=== PATIENT | male | born 1940 | race Caucasian/White ===

== ENCOUNTER → 2017-08-22 10:33 | Outpatient (CLI) | payer OTHER ==
[~2017-08-22 10:33] MED LIST: ASA81 MG PO; FLOMAX; PLAVIX75 MG PO; TAMS0.4C; TOPROL XL25 M1 PO; TOPROL XL25 MG PO; ZOCOR20 MG; ZOCOR40 MG PO; ZOCOR5 MG
== END | disposition home or self-care (01) ==
LOC: LAB 10:33
DX: D68.61 Antiphospholipid syndrome (principal); E72.11 Homocystinuria; D51.3 Other dietary vitamin B12 deficiency anemia; I82.B11 Acute embolism and thrombosis of right subclavian vein; E78.2 Mixed hyperlipidemia; N40.1 Benign prostatic hyperplasia with lower urinary tract symptoms; D50.8 Other iron deficiency anemias; R97.0 Elevated carcinoembryonic antigen [CEA]; R97.8 Other abnormal tumor markers; D51.8 Other vitamin B12 deficiency anemias

== ENCOUNTER 2017-08-25 12:47 | Outpatient (CLI) | payer OTHER | END 2017-08-25 12:58 | disposition home or self-care (01) | LOC: NUCLEAR 12:47 | DX: I87.2 Venous insufficiency (chronic) (peripheral) (principal); D68.61 Antiphospholipid syndrome; E72.11 Homocystinuria; D51.3 Other dietary vitamin B12 deficiency anemia; I82.811 Embolism and thrombosis of superficial veins of right lower extremity; E78.2 Mixed hyperlipidemia; N40.1 Benign prostatic hyperplasia with lower urinary tract symptoms ==

== ENCOUNTER 2017-10-31 11:07 | Outpatient (CLI) | payer OTHER | END 2017-10-31 11:17 | disposition home or self-care (01) | LOC: LAB 11:07 | DX: E11.65 Type 2 diabetes mellitus with hyperglycemia (principal); E72.11 Homocystinuria; E03.8 Other specified hypothyroidism; E78.2 Mixed hyperlipidemia; D64.89 Other specified anemias; D68.8 Other specified coagulation defects ==

== ENCOUNTER 2017-12-12 09:45 | Outpatient (CLI) | payer OTHER | END 2017-12-12 10:30 | disposition home or self-care (01) | LOC: NUCLEAR 09:45 | DX: I82.401 Acute embolism and thrombosis of unspecified deep veins of right lower extremity (principal) ==

== ENCOUNTER 2018-09-11 07:20 | Outpatient (CLI) | payer OTHER | END 2018-09-11 12:32 | disposition home or self-care (01) | LOC: NUCLEAR 07:20 | DX: I20.9 Angina pectoris, unspecified (principal) | CPT/HCPCS: 78452; 93017; A9500; J0153 ==

== ENCOUNTER 2018-09-27 17:29 | Emergency (ER) | payer OTHER ==
[~2018-09-27] VITALS: Ht 165.1 cm; Wt 82.6 kg
== END 2018-09-27 21:13 | disposition home or self-care (01) ==
LOC: ER 17:29
DX: D32.0 Benign neoplasm of cerebral meninges (principal); R42 Dizziness and giddiness

== ENCOUNTER 2019-02-20 10:32 | Inpatient (IN) | payer OTHER ==
[~2019-02-20] VITALS: Ht 165.1 cm; Wt 82.6 kg
--- NOTE | 2019-02-20 10:41 | NUR ---
SE RECIBE AL PACIENTE ORIENTADO Y ALERTA EN PRISCILLA RASHAD ESFERAS. PACIENTE VIENE POR TOS SECA DESDE HACE KARYN SEMANA.
== END 2019-02-25 15:44 | disposition home or self-care (01) | DRG 194 ==
LOC: ER 10:32 → MEDJ 18:22
PROVIDERS: ADMIT Specialist
PROC: BW24ZZZ Computerized Tomography (CT Scan) of Chest and Abdomen (ICD-10-PCS; principal; 2019-02-20)
PROC: B246ZZZ Ultrasonography of Right and Left Heart (ICD-10-PCS; 2019-02-20)
PROC: BW21ZZZ Computerized Tomography (CT Scan) of Abdomen and Pelvis (ICD-10-PCS; 2019-02-21)
DX: J18.9 Pneumonia, unspecified organism (principal); J90 Pleural effusion, not elsewhere classified; J44.1 Chronic obstructive pulmonary disease with (acute) exacerbation; J98.11 Atelectasis; D68.59 Other primary thrombophilia; D68.318 Other hemorrhagic disorder due to intrinsic circulating anticoagulants, antibodies, or inhibitors; J45.901 Unspecified asthma with (acute) exacerbation; I71.2 Thoracic aortic aneurysm, without rupture; I71.4 Abdominal aortic aneurysm, without rupture; I25.10 Atherosclerotic heart disease of native coronary artery without angina pectoris; I25.2 Old myocardial infarction; I10 Essential (primary) hypertension; E78.49 Other hyperlipidemia; R35.1 Nocturia; N40.0 Benign prostatic hyperplasia without lower urinary tract symptoms; Z95.5 Presence of coronary angioplasty implant and graft; Z72.0 Tobacco use

== ENCOUNTER 2019-03-25 11:40 | Outpatient (CLI) | payer OTHER ==
[2019-03-26] MEDS ORDERED: XARELTO20 MG (09:59)
== END 2019-03-25 11:50 | disposition home or self-care (01) ==
LOC: LAB 11:40
DX: I11.9 Hypertensive heart disease without heart failure (principal); D64.89 Other specified anemias; R07.89 Other chest pain

== ENCOUNTER 2019-03-26 09:37 | Inpatient (IN) | payer OTHER ==
[~2019-03-26] VITALS: Ht 182.9 cm; Wt 5.0 kg
[2019-03-26] MEDS ORDERED: XARELTO20 MG (09:59)
== END 2019-04-02 15:58 | disposition home or self-care (01) | DRG 187 ==
LOC: ER 09:37 → MEDJ 15:43
PROVIDERS: ADMIT Specialist
PROC: 3E0F7GC Introduction of Other Therapeutic Substance into Respiratory Tract, Via Natural or Artificial Opening (ICD-10-PCS; 2019-03-26)
PROC: 4A033R1 Measurement of Arterial Saturation, Peripheral, Percutaneous Approach (ICD-10-PCS; 2019-03-26)
PROC: 0W9930Z Drainage of Right Pleural Cavity with Drainage Device, Percutaneous Approach (ICD-10-PCS; principal; 2019-03-29)
DX: J90 Pleural effusion, not elsewhere classified (principal); I25.810 Atherosclerosis of coronary artery bypass graft(s) without angina pectoris; J98.11 Atelectasis; D68.318 Other hemorrhagic disorder due to intrinsic circulating anticoagulants, antibodies, or inhibitors; I82.601 Acute embolism and thrombosis of unspecified veins of right upper extremity; J44.1 Chronic obstructive pulmonary disease with (acute) exacerbation; J45.51 Severe persistent asthma with (acute) exacerbation; I11.9 Hypertensive heart disease without heart failure; E54 Ascorbic acid deficiency; I71.4 Abdominal aortic aneurysm, without rupture; R09.02 Hypoxemia; G20 Parkinson's disease; J20.9 Acute bronchitis, unspecified; I25.2 Old myocardial infarction; Z79.01 Long term (current) use of anticoagulants; Z95.5 Presence of coronary angioplasty implant and graft

== ENCOUNTER 2019-04-15 13:07 | Outpatient (CLI) | payer OTHER ==
[~2019-04-15 13:07] MED LIST changes: +XARELTO20 MG
== END 2019-04-15 13:16 | disposition home or self-care (01) ==
LOC: LAB 13:07
DX: D64.89 Other specified anemias (principal); D68.8 Other specified coagulation defects; E11.65 Type 2 diabetes mellitus with hyperglycemia

== ENCOUNTER 2019-04-15 13:29 | Outpatient (CLI) | payer OTHER | END 2019-04-15 13:32 | disposition home or self-care (01) | LOC: RAD 13:29 | DX: R07.89 Other chest pain (principal) ==

== ENCOUNTER 2019-05-31 07:13 | Outpatient (CLI) | payer OTHER | END 2019-05-31 07:20 | disposition home or self-care (01) | LOC: NUCLEAR 07:13 | DX: I25.10 Atherosclerotic heart disease of native coronary artery without angina pectoris (principal) | CPT/HCPCS: 78452; 93017; A9500; J0153 ==

== ENCOUNTER 2020-08-18 09:48 | Inpatient (IN) | payer OTHER ==
[~2020-08-18] VITALS: Ht 167.6 cm; Wt 82.6 kg
[2020-08-22] MEDS ORDERED: XOPENEX0.63 MG/3 IH (15:17)
[2020-08-22] MEDS ORDERED: TAMS0.4C PO (15:17)
[2020-08-22] MEDS ORDERED: XARELTO20 MG PO (15:17)
[2020-08-22] MEDS ORDERED: ENALAPRIL MALEAT5 MG PO (15:17)
[2020-08-22] MEDS ORDERED: ISOSORBIDE DINIT5 MG PO (15:17)
[2020-08-22] MEDS ORDERED: BUDESONIDE0.5 MG/2 M IH (15:17)
[2020-08-22] MEDS ORDERED: ZOCOR20 MG PO (15:17)
== END 2020-08-22 18:42 | disposition home or self-care (01) | DRG 292 ==
LOC: ER 09:48 → MEDI 14:19 → MEDJ 14:19 → MEDI 15:54
PROVIDERS: ADMIT Specialist; ATTEND Specialist
PROC: 4A033R1 Measurement of Arterial Saturation, Peripheral, Percutaneous Approach (ICD-10-PCS; principal; 2020-08-18)
PROC: CB2YYZZ Tomographic (Tomo) Nuclear Medicine Imaging of Respiratory System using Other Radionuclide (ICD-10-PCS; 2020-08-18)
PROC: B24BZZZ Ultrasonography of Heart with Aorta (ICD-10-PCS; 2020-08-21)
DX: I11.0 Hypertensive heart disease with heart failure (principal); J98.11 Atelectasis; J44.1 Chronic obstructive pulmonary disease with (acute) exacerbation; I48.20 Chronic atrial fibrillation, unspecified; I16.0 Hypertensive urgency; I50.23 Acute on chronic systolic (congestive) heart failure; I25.10 Atherosclerotic heart disease of native coronary artery without angina pectoris; Z86.16 Personal history of COVID-19; Z20.822 Contact with and (suspected) exposure to COVID-19; Z95.5 Presence of coronary angioplasty implant and graft; Z79.01 Long term (current) use of anticoagulants

== ENCOUNTER 2021-02-12 10:41 | Outpatient (CLI) | payer OTHER ==
[~2021-02-12 10:41] MED LIST changes: +BUDESONIDE0.5 MG/2 M IH; +ENALAPRIL MALEAT5 MG PO; +ISOSORBIDE DINIT5 MG PO; +TAMS0.4C PO; +XARELTO20 MG PO; +XOPENEX0.63 MG/3 IH; +ZOCOR20 MG PO
[2021-04-15] MEDS ORDERED: PLAVIX75 MG (17:11)
[2021-04-15] MEDS ORDERED: MEDROLPACK PO (19:40)
[2021-04-15] MEDS ORDERED: ZITHROMAX500 MG PO (19:40)
[2021-04-15] MEDS ORDERED: XOPENEX0.63 MG/3 IH (19:40)
== END 2021-02-12 10:42 | disposition home or self-care (01) ==
LOC: NUCLEAR 10:41
PROVIDERS: ATTEND Specialist
DX: G45.9 Transient cerebral ischemic attack, unspecified (principal)

== ENCOUNTER 2021-02-19 07:24 | Outpatient (CLI) | payer OTHER ==
[2021-04-15] MEDS ORDERED: PLAVIX75 MG (17:11)
[2021-04-15] MEDS ORDERED: ZITHROMAX500 MG PO (19:40)
[2021-04-15] MEDS ORDERED: MEDROLPACK PO (19:40)
[2021-04-15] MEDS ORDERED: XOPENEX0.63 MG/3 IH (19:40)
== END 2021-02-19 07:26 | disposition home or self-care (01) ==
LOC: NUCLEAR 07:24
PROVIDERS: ATTEND Internal Medicine Cardiovascular Disease
DX: I50.1 Left ventricular failure, unspecified (principal); R07.89 Other chest pain
CPT/HCPCS: 78452; 93017; A9500; J0153

== ENCOUNTER → 2021-04-15 | Emergency (ER) | payer OTHER ==
[~2021-04-15] VITALS: Ht 167.6 cm; Wt 86.2 kg
[~2021-04-15] MED LIST changes: +MEDROLPACK PO; +PLAVIX75 MG; +ZITHROMAX500 MG PO
== END | disposition home or self-care (01) ==
LOC: ER 16:24
DX: J45.901 Unspecified asthma with (acute) exacerbation (principal); Z03.818 Encounter for observation for suspected exposure to other biological agents ruled out

== ENCOUNTER 2021-06-26 15:11 | Emergency (ER) | payer OTHER ==
[~2021-06-26] VITALS: Ht 162.6 cm; Wt 82.6 kg
== END 2021-06-26 19:47 | disposition home or self-care (01) ==
LOC: ER 15:11
DX: K21.9 Gastro-esophageal reflux disease without esophagitis (principal); R07.89 Other chest pain; R10.13 Epigastric pain

== ENCOUNTER 2021-06-28 12:46 | Outpatient (CLI) | payer OTHER | END 2021-06-28 12:47 | disposition home or self-care (01) | LOC: LAB 12:46 | PROVIDERS: ATTEND Internal Medicine Cardiovascular Disease | DX: N39.0 Urinary tract infection, site not specified (principal) ==

== ENCOUNTER → 2021-06-28 | Outpatient (CLI) | payer OTHER | END | disposition home or self-care (01) | LOC: RAD 13:33 | PROVIDERS: ATTEND Internal Medicine Cardiovascular Disease | DX: M43.6 Torticollis (principal) ==

== ENCOUNTER 2021-07-10 15:35 | Emergency (ER) | payer OTHER ==
[~2021-07-10] VITALS: Ht 167.6 cm; Wt 81.6 kg
== END 2021-07-10 18:35 | disposition designated cancer center or children's hospital (05) ==
LOC: ER 15:35
DX: I21.4 Non-ST elevation (NSTEMI) myocardial infarction (principal)

== ENCOUNTER 2021-11-22 09:11 | Outpatient (CLI) | payer OTHER | END 2021-11-22 09:13 | disposition home or self-care (01) | LOC: NUCLEAR 09:11 | PROVIDERS: ATTEND Specialist | DX: I73.89 Other specified peripheral vascular diseases (principal) ==

== ENCOUNTER 2022-02-19 13:39 | Inpatient (IN) | payer OTHER ==
[~2022-02-19] VITALS: Ht 167.6 cm; Wt 84.4 kg
--- NOTE | 2022-02-19 14:09 | NUR ---
PACIENTE REFIERE QUE TIENE PULMONIA, PACIENTE SE OBSERVA CON DIFICULTAD AL RESPIRAR DE VARIOS PINZON DE EVOLUCION.
--- NOTE | 2022-02-19 15:03 | NUR ---
SE ORIENTA PTE SOBRE TX A SEGUIR, EL CUAL REFIERE ENTENDER. SE COLECTAN MUESTRAS Y SE CANALIZA PTE UTILIZANDO MEDIDAS ASEPTICAS. PEND A REALIZAR CT DE PECHO
[2022-03-03] MEDS ORDERED: XOPENEX0.63 MG/3 IH (17:38)
[2022-03-03] MEDS ORDERED: TAMS0.4C PO (17:38)
[2022-03-03] MEDS ORDERED: MEDROLPACK PO (17:38)
[2022-03-03] MEDS ORDERED: PLAVIX75 MG PO (17:39)
[2022-03-03] MEDS ORDERED: ISOSORBIDE DINIT5 MG PO (17:39)
[2022-03-03] MEDS ORDERED: BENZONATATE200 M1 PO (17:40)
[2022-03-03] MEDS ORDERED: ZOCOR20 MG PO (17:40)
[2022-03-03] MEDS ORDERED: LOSARTAN POTAS100 MG PO (17:40)
[2022-03-03] MEDS ORDERED: AMLODIPINE BESYL5 MG PO (17:40)
[2022-03-03] MEDS ORDERED: MUCINEX600 MG PO (17:41)
[2022-03-03] MEDS ORDERED: MONTELUKAST SOD10 MG PO (17:41)
[2022-03-03] MEDS ORDERED: BUDEO.25 IH (17:41)
[2022-03-03] MEDS ORDERED: FAMOTIDINE20 MG PO (17:42)
[2022-03-03] MEDS ORDERED: POM (MEDICAMENTO EN PO (17:43)
== END 2022-03-03 20:41 | disposition home or self-care (01) | DRG 194 ==
LOC: ER 13:39 → MEDJ 17:10 → SEC-K 17:10 → MEDJ 20:51
PROVIDERS: ADMIT Specialist; ATTEND Specialist
PROC: BW24ZZZ Computerized Tomography (CT Scan) of Chest and Abdomen (ICD-10-PCS; principal; 2022-02-19)
PROC: 3E0F7SF Introduction of Other Gas into Respiratory Tract, Via Natural or Artificial Opening (ICD-10-PCS; 2022-02-21)
DX: J18.0 Bronchopneumonia, unspecified organism (principal); J98.11 Atelectasis; J44.1 Chronic obstructive pulmonary disease with (acute) exacerbation; D68.59 Other primary thrombophilia; J45.998 Other asthma; I25.2 Old myocardial infarction; I11.0 Hypertensive heart disease with heart failure; I50.9 Heart failure, unspecified; I25.10 Atherosclerotic heart disease of native coronary artery without angina pectoris; Z87.891 Personal history of nicotine dependence; Z20.822 Contact with and (suspected) exposure to COVID-19

== ENCOUNTER 2022-04-15 10:54 | Outpatient (CLI) | payer OTHER ==
[~2022-04-15 10:54] MED LIST changes: +AMLODIPINE BESYL5 MG PO; +BENZONATATE200 M1 PO; +BUDEO.25 IH; +FAMOTIDINE20 MG PO; +LOSARTAN POTAS100 MG PO; +MONTELUKAST SOD10 MG PO; +MUCINEX600 MG PO; +POM (MEDICAMENTO EN PO
== END 2022-04-15 10:59 | disposition home or self-care (01) ==
LOC: RAD 10:54
PROVIDERS: ATTEND Specialist
DX: J45.998 Other asthma (principal)

== ENCOUNTER 2022-05-10 15:02 | Outpatient (CLI) | payer OTHER | END 2022-05-10 15:08 | disposition home or self-care (01) | LOC: LAB 15:02 | PROVIDERS: ATTEND Radiology Diagnostic Radiology | DX: D68.61 Antiphospholipid syndrome (principal) ==

== ENCOUNTER 2022-05-17 10:02 | Outpatient (CLI) | payer OTHER | END 2022-05-17 10:09 | disposition home or self-care (01) | LOC: NUCLEAR 10:02 | PROVIDERS: ATTEND Internal Medicine Cardiovascular Disease | DX: I73.9 Peripheral vascular disease, unspecified (principal) ==

== ENCOUNTER 2022-05-20 08:57 | Outpatient (CLI) | payer OTHER | END 2022-05-20 09:12 | disposition home or self-care (01) | LOC: TOM 08:57 | PROVIDERS: ATTEND Internal Medicine Hematology & Oncology | DX: D68.61 Antiphospholipid syndrome (principal); D51.3 Other dietary vitamin B12 deficiency anemia; I82.811 Embolism and thrombosis of superficial veins of right lower extremity; E78.2 Mixed hyperlipidemia; N40.1 Benign prostatic hyperplasia with lower urinary tract symptoms | CPT/HCPCS: 71260; Q9965 ==

== ENCOUNTER 2022-05-23 09:54 | Outpatient (CLI) | payer OTHER | END 2022-05-23 10:04 | disposition home or self-care (01) | LOC: LAB 09:54 | PROVIDERS: ATTEND Internal Medicine Hematology & Oncology | DX: D50.8 Other iron deficiency anemias (principal); I10 Essential (primary) hypertension; R74.02 Elevation of levels of lactic acid dehydrogenase [LDH]; K76.89 Other specified diseases of liver; D63.1 Anemia in chronic kidney disease; D68.59 Other primary thrombophilia; E72.11 Homocystinuria; D47.2 Monoclonal gammopathy; C90.00 Multiple myeloma not having achieved remission; R97.0 Elevated carcinoembryonic antigen [CEA]; R97.8 Other abnormal tumor markers; R97.20 Elevated prostate specific antigen [PSA]; N40.1 Benign prostatic hyperplasia with lower urinary tract symptoms; E78.2 Mixed hyperlipidemia; I82.811 Embolism and thrombosis of superficial veins of right lower extremity ==

== ENCOUNTER 2022-06-21 14:23 | Outpatient (CLI) | payer OTHER | END 2022-06-21 14:28 | disposition home or self-care (01) | LOC: LAB 14:23 | PROVIDERS: ATTEND Internal Medicine Hematology & Oncology | DX: I10 Essential (primary) hypertension (principal) ==

== ENCOUNTER 2022-07-13 10:02 | Outpatient (CLI) | payer OTHER | END 2022-07-13 10:04 | disposition home or self-care (01) | LOC: TOM 10:02 | PROVIDERS: ATTEND Internal Medicine Hematology & Oncology | DX: Z86.718 Personal history of other venous thrombosis and embolism (principal); D68.61 Antiphospholipid syndrome; D51.3 Other dietary vitamin B12 deficiency anemia; I82.811 Embolism and thrombosis of superficial veins of right lower extremity; E78.2 Mixed hyperlipidemia; N40.1 Benign prostatic hyperplasia with lower urinary tract symptoms ==

== ENCOUNTER 2022-08-13 13:11 | Inpatient (IN) | payer OTHER ==
[~2022-08-13] VITALS: Ht 152.4 cm; Wt 79.4 kg
--- NOTE | 2022-08-13 14:23 | NUR ---
PTE MASCULINO DE 81 YRS LA MARIEL REFIERE ASMA DESDE DARI , SE ACOMODA EN ASMS UNID Y SE LE COLOCA CANULA NASAL A 2 TRS.
--- NOTE | 2022-08-13 15:20 | NUR ---
SE OBSERVA PTE CON DISTRESS RESPIRATORIO, CYANOTICO, HYPERVENTILANDO. SE VERIFICA S/V, SE CANALIZA Y SE COLOCA NON-REBREATHING MASK, PTE SATURANDO 90%. SE NOTIFICA A MEDICO DE TURNO. SE COLOCA EN DUSTIN JUNTO CON EDITOR IN CHIEF NEWSPAPER DARIUSZ, RN BARRETT Y PERSONAL DE TRANSPORTE. SE UBICA EN DUSTIN #1 DE AREA DE CRITICO.
--- NOTE | 2022-08-13 17:10 | NUR ---
1508: PATIENT IS RECIEVED IN CRITICAL CARE ALERT BUT NOT ORIENTED X3. PATIENT IS CYANOTIC. PATIENT IS PALCED IN BED WITH RAILINGS UP AND CONENCTED TO TELEMETRY AND OXIMETRY. 1510: KIKE CACERES IS CALLED THROUGH HOSPITAL SPEAKER SYSTEM. 1515: PATIENT IS GIVEN AMBU AND IV LINES ARE STARTED ON PATIENT'S ARMS. BENAVIDES TO GRAVITY IS INSERTED. 1529: TRIDIL DRIP @ 10ML/HR IS STARTED. PATIENT IS GIVEN LASIX 40MG AND SOLUMEDROL 125MG IV. 1532: FIRST DOSE OF PROPOFOL 10 IV IS ADMINSITERED ACCORIDNG TO DOCTOR'S ORDERS. 1535: DR. ROBINS TRIED TO INTUBATE PATIENT AND FAILS. PATIENT IS STILL AGRESSIVE AND GIVEN PROPOFOL 5 IV ACCORDING TO DOCTOR'S ORDERS. 1540: ANESTHESIOLOGIST IS SUCCESSFUL INTUBATING PATIENT WITH A 6.5 TUBE. 1600: PATIENT IS BREATHING THROUGH MECHANICAL VENTILATOR AND IS IN STABLE CONDITIONS. PATIENT HAS TRIDIL DRIP AT 10 ML/HR AND PROPOFOL DRIP AT 20 ML/HR. PATIENT HAS PATENT IV LINES AND CLEAN VENIPUNCTURES. PATIENT HAS RESTRICTION X2 IN UPPER EXTREMITIES FOR SAFTEY.
[2022-08-22] MEDS ORDERED: ATORVASTATIN CA40 MG (09:05)
[2022-08-22] MEDS ORDERED: DUTASTERIDE0.5 MG (09:05)
[2022-08-22] MEDS ORDERED: TRELEGY ELLIPT1 EACH (09:06)
[2022-08-22] MEDS ORDERED: ISOSORBIDE MONO30 M2 (09:06)
[2022-08-22] MEDS ORDERED: ELIQUIS5 MG (09:06)
== END 2022-08-25 18:27 | disposition home or self-care (01) | DRG 208 ==
LOC: ER 13:11 → ICU 19:18 → ICU-2 19:18 → ICU 08-14 14:46 → MEDJ 08-21 16:35
PROVIDERS: ADMIT Specialist; ATTEND Specialist
PROC: 5A1945Z Respiratory Ventilation, 24-96 Consecutive Hours (ICD-10-PCS; principal; 2022-08-13)
PROC: 0BH17EZ Insertion of Endotracheal Airway into Trachea, Via Natural or Artificial Opening (ICD-10-PCS; 2022-08-13)
PROC: B24BZZZ Ultrasonography of Heart with Aorta (ICD-10-PCS; 2022-08-14)
PROC: B54PZZZ Ultrasonography of Bilateral Upper Extremity Veins (ICD-10-PCS; 2022-08-14)
PROC: 02HV33Z Insertion of Infusion Device into Superior Vena Cava, Percutaneous Approach (ICD-10-PCS; 2022-08-14)
PROC: 4A12X4Z Monitoring of Cardiac Electrical Activity, External Approach (ICD-10-PCS; 2022-08-21)
PROC: BW24ZZZ Computerized Tomography (CT Scan) of Chest and Abdomen (ICD-10-PCS; 2022-08-23)
DX: J96.01 Acute respiratory failure with hypoxia (principal); J16.8 Pneumonia due to other specified infectious organisms; I16.9 Hypertensive crisis, unspecified; I50.30 Unspecified diastolic (congestive) heart failure; J96.02 Acute respiratory failure with hypercapnia; I48.91 Unspecified atrial fibrillation; J44.9 Chronic obstructive pulmonary disease, unspecified; I11.0 Hypertensive heart disease with heart failure; I25.10 Atherosclerotic heart disease of native coronary artery without angina pectoris; Z95.5 Presence of coronary angioplasty implant and graft; Z20.822 Contact with and (suspected) exposure to COVID-19; Z87.891 Personal history of nicotine dependence; I71.40 Abdominal aortic aneurysm, without rupture, unspecified; D32.9 Benign neoplasm of meninges, unspecified

== ENCOUNTER → 2023-10-30 | Outpatient (CLI) | payer OTHER ==
[~2023-10-30] MED LIST changes: +ATORVASTATIN CA40 MG; +DUTASTERIDE0.5 MG; +ELIQUIS5 MG; +ISOSORBIDE MONO30 M2; +TRELEGY ELLIPT1 EACH
[2023-10-30 12:38] LABS: HEMATOCRIT 39.5 % (39.0-48.0); HEMOGLOBIN 13.4 g/dL (13-16.00); MEAN CORPUSCULAR HEMOGLOBIN 31.8 pg (27.00-32.0); MEAN CORPUSCULAR HGB CONC 33.9 g/dl (32.0-36.0); PLATELET COUNT 129 K/uL (150-450); RED CELL DISTRIBUTION WIDTH 14.9 % (11.5-14.5)
[2023-10-30 13:33] LABS: ALBUMIN 3.6 gm/dL (3.4-5.0); BILIRUBIN TOTAL 1.32 mg/dL (0.3-1.2); CALCIUM 8.8 mg/dL (8.5-10.1); CREATININE SERUM 1.09 mg/dL (0.70-1.30); GFR 64.61; GLOBULINA 2.8 G/DL (2.4-3.5); POTASSIUM 4.84 mEq/L (3.5-5.1); TOTAL PROTEIN 6.4 gm/dL (6.4-8.2)
[2023-10-30 13:35] LABS: FOLIC ACID 9.77 ng/ml (4.78-20)
== END | disposition home or self-care (01) ==
LOC: LAB 11:14
PROVIDERS: ATTEND Internal Medicine Hematology & Oncology
DX: D68.61 Antiphospholipid syndrome (principal); D51.3 Other dietary vitamin B12 deficiency anemia; I82.811 Embolism and thrombosis of superficial veins of right lower extremity; E78.2 Mixed hyperlipidemia; N40.1 Benign prostatic hyperplasia with lower urinary tract symptoms; I70.213 Atherosclerosis of native arteries of extremities with intermittent claudication, bilateral legs; D50.8 Other iron deficiency anemias; I10 Essential (primary) hypertension; K76.89 Other specified diseases of liver; R74.02 Elevation of levels of lactic acid dehydrogenase [LDH]; D51.8 Other vitamin B12 deficiency anemias; D47.2 Monoclonal gammopathy; C90.00 Multiple myeloma not having achieved remission; R97.0 Elevated carcinoembryonic antigen [CEA]; R97.8 Other abnormal tumor markers

== ENCOUNTER → 2024-01-31 12:12 | Outpatient (CLI) | payer OTHER ==
[2024-01-31 13:06] LABS: HEMATOCRIT 31.5 % (39.0-48.0); HEMOGLOBIN 10.8 g/dL (13-16.00); MEAN CORPUSCULAR HEMOGLOBIN 31.5 pg (27.00-32.0); MEAN CORPUSCULAR HGB CONC 34.2 g/dl (32.0-36.0); PLATELET COUNT 243 K/uL (150-450); RED BLOOD COUNT 3.43 M/uL (4.00-6.00); RED CELL DISTRIBUTION WIDTH 16.3 % (11.5-14.5)
[2024-01-31 13:31] LABS: ALBUMIN 3.2 gm/dL (3.4-5.0); CALCIUM 8.5 mg/dL (8.5-10.1); CREATININE SERUM 1.4 mg/dL (0.70-1.30); GFR 48.4; POTASSIUM 4.88 mEq/L (3.5-5.1); TOTAL PROTEIN 6.2 gm/dL (6.4-8.2)
== END | disposition home or self-care (01) ==
LOC: LAB 12:12
PROVIDERS: ATTEND Internal Medicine Hematology & Oncology
DX: D47.2 Monoclonal gammopathy (principal); E72.11 Homocystinuria; D51.3 Other dietary vitamin B12 deficiency anemia; I82.811 Embolism and thrombosis of superficial veins of right lower extremity; E78.2 Mixed hyperlipidemia; I70.213 Atherosclerosis of native arteries of extremities with intermittent claudication, bilateral legs

== ENCOUNTER → 2024-04-02 | Outpatient (CLI) | payer OTHER ==
[2024-04-02 11:41] LABS: HEMATOCRIT 26.6 % (39.0-48.0); HEMOGLOBIN 9.1 g/dL (13-16.00); MEAN CELL VOLUME 90.1 fL (80.0-100.00); MEAN CORPUSCULAR HEMOGLOBIN 30.7 pg (27.00-32.0); MEAN CORPUSCULAR HGB CONC 34.1 g/dl (32.0-36.0); PLATELET COUNT 146 K/uL (150-450); RED BLOOD COUNT 2.96 M/uL (4.00-6.00); RED CELL DISTRIBUTION WIDTH 18.4 % (11.5-14.5)
[2024-04-02 12:23] LABS: ALBUMIN 3.1 gm/dL (3.4-5.0); BILIRUBIN TOTAL 1.2 mg/dL (0.3-1.2); CALCIUM 8.4 mg/dL (8.5-10.1); CREATININE SERUM 1.44 mg/dL (0.70-1.30); GFR 46.85; GLOBULINA 2.5 G/DL (2.4-3.5); POTASSIUM 4.31 mEq/L (3.5-5.1); TOTAL PROTEIN 5.6 gm/dL (6.4-8.2)
[2024-04-04 17:10] LABS: kappa lambda r 1.35 (0.26-1.65); kappa light 28.9 mg/L (3.3-19.4); lambda light 21.4 mg/L (5.7-26.3)
[2024-04-05 07:07] LABS: BETA-2-MICROGLOBULINA 2.9 mg/L (0.6-2.4)
[2024-04-05 13:07] LABS: albu 33.1 % (.); alp 8.2 % (.); beta 24.1 % (.); gam 15.6 % (.); m spi 0 % (Not Observed); prot 44.2 mg/dL (Not Estab.)
[2024-04-06 11:11] LABS: IMM A 131 mg/dL (61-437); IMM G 552 mg/dL (603-1613); IMM M 17 mg/dL (15-143); a:g ratio 1.5 (0.7-1.7); alpha 1 g 0.3 g/dL (0.0-0.4); alpha 2 0.5 g/dL (0.4-1.0); beta g 0.7 g/dL (0.7-1.3); gamma g 0.5 g/dL (0.4-1.8); globulin t 2.1 g/dL (2.2-3.9); m spike 0.1 g/dL (Not Observed); prot total 5.3 g/dL (6.0-8.5)
== END | disposition home or self-care (01) ==
LOC: LAB 11:05
PROVIDERS: ATTEND Internal Medicine Hematology & Oncology
DX: C90.00 Multiple myeloma not having achieved remission (principal); E72.11 Homocystinuria; D51.3 Other dietary vitamin B12 deficiency anemia; E78.2 Mixed hyperlipidemia; N40.1 Benign prostatic hyperplasia with lower urinary tract symptoms; I70.213 Atherosclerosis of native arteries of extremities with intermittent claudication, bilateral legs; D50.8 Other iron deficiency anemias; I10 Essential (primary) hypertension; R74.02 Elevation of levels of lactic acid dehydrogenase [LDH]; K76.89 Other specified diseases of liver; D47.2 Monoclonal gammopathy

== ENCOUNTER 2024-07-01 14:16 | Inpatient (IN) | payer OTHER ==
[~2024-07-01] VITALS: Ht 167.6 cm; Wt 75.3 kg
[2024-07-01] MEDS ORDERED: LIPITOR40 M1 PO (14:42)
[2024-07-01] MEDS ORDERED: TAMS0.4C PO (14:42)
[2024-07-01] MEDS ORDERED: NORVASC5 MG PO (14:42)
[2024-07-01] MEDS ORDERED: TOPROL XL25 M1 PO (14:43)
[2024-07-01] MEDS ORDERED: SIMVASTATIN5 MG PO (14:43)
[2024-07-01] MEDS ORDERED: COZAAR100 MG PO (14:43)
[2024-07-01] MEDS ORDERED: ELIQUIS5 MG PO (14:43)
--- NOTE | 2024-07-01 14:44 | NUR ---
PTE ALERTA Y ORIENTADO X3 EN AMBULANCIA QUIEN REFIERE VENIR POR SOB. AL MOMENTO DE NORM DE VITALES SATURANDO 92%
[2024-07-01] MEDS ORDERED: FAMOtidine 10 MG/ML (4ML VIAL) IV ONE (15:00)
[2024-07-01] MEDS ORDERED: LEVALBUTEROL HCL 0.63 MG/3 ML SOLUTION IH ONE (15:00)
[2024-07-01] MEDS ORDERED: IPRATROPIUM/ALBUTEROL SULFATE 3 ML AMPUL.NEB IH ONE (15:00)
[2024-07-01] MEDS ORDERED: PIPERACILLIN/TAZOBACTAM SODIUM 3.375 GM VIAL IV ONE (15:00)
[2024-07-01] MEDS ORDERED: 0.9 % SODIUM CHLORIDE 1,000 ML IV SCH (15:00)
[2024-07-01] MEDS ORDERED: METHYLPREDNISOLONE SOD SUCC 40 MG VIAL IV ONE (15:00)
[2024-07-01] MEDS ORDERED: FUROsemide 20 MG/2 ML VIAL IV ONE (15:15)
[2024-07-01 15:18] LABS: ABG PH 7.454 (7.35-7.45); ABG PO2 59.6 mmHg (80-100); ABG pCO2 35.6 mmHg (35-45)
[2024-07-01 15:20] LABS: BICARBONATE 24.4 mmol/l (23-25); SaO2 91.9 %; Tco2 25.5 mmol/l
[2024-07-01 15:22] LABS: allen test SATISFACTORY; o2 32 %; puncture site RADIAL RIGHT
[2024-07-01 15:44] LABS: HEMOGLOBIN 9.3 g/dL (13-16.00); MEAN CELL VOLUME 101.6 fL (80.0-100.00); MEAN CORPUSCULAR HEMOGLOBIN 32.7 pg (27.00-32.0); MEAN CORPUSCULAR HGB CONC 32.2 g/dl (32.0-36.0); RED BLOOD COUNT 2.85 M/uL (4.00-6.00)
[2024-07-01 15:46] LABS: PLATELET COUNT 91 K/uL (150-450)
[2024-07-01 16:09] LABS: BILIRUBIN TOTAL 1.88 mg/dL (0.3-1.2); CALCIUM 8.1 mg/dL (8.5-10.1); CREATININE SERUM 1.27 mg/dL (0.70-1.30); GFR 54.16; GLOBULINA 2.6 G/DL (2.4-3.5); POTASSIUM 4.15 mEq/L (3.5-5.1); TOTAL PROTEIN 5.6 gm/dL (6.4-8.2)
[2024-07-01 16:11] LABS: C-REACTIVE PROTEIN 8.12 MG/DL (0.00-0.29)
[2024-07-01 16:14] LABS: D DIMER 0.88 MG/L; PARTIAL THROMBOPLASTIN TIME 31.9 SECONDS (22.0-34.0)
[2024-07-01 16:57] LABS: ABG PH 7.397 (7.35-7.45); ABG PO2 198.7 mmHg (80-100); ABG pCO2 43.4 mmHg (35-45); BASE EXCESS 0.9 mmol/l; BICARBONATE 26.1 mmol/l (23-25); SaO2 99.7 %; Tco2 27.4 mmol/l
[2024-07-01 17:11] LABS: allen test SATISFACTORY; o2 100 %; puncture site RADIAL RIGHT
[2024-07-01 17:28] LABS: INR 1.17; PROTHROMBIN TIME 12.6 SECONDS (9.0-11.5)
[2024-07-01] MEDS ORDERED: SODIUM CHLORIDE 0.45 % 1,000 ML IV SCH (17:30)
[2024-07-01] MEDS ORDERED: LEVALBUTEROL HCL 0.63 MG/3 ML SOLUTION IH SCH (17:36)
[2024-07-01] MEDS ORDERED: PANTOPRAZOLE SODIUM 40 MG TABLET.DR PO SCH (17:51)
[2024-07-01] MEDS ORDERED: BUDESONIDE 0.5 MG/2 ML AMPUL.NEB IH SCH (17:53)
[2024-07-01] MEDS ORDERED: CEFEPIME HCL 2,000 MG VIAL IV STA (17:54)
[2024-07-01] MEDS ORDERED: FUROsemide 20 MG/2 ML VIAL IV SCH (17:55)
[2024-07-01] MEDS ORDERED: METOPROLOL SUCCINATE 25 MG TAB.SR.24H PO SCH (17:56)
[2024-07-01] MEDS ORDERED: BENZONATATE 100 MG CAPSULE PO SCH (17:58)
[2024-07-01] MEDS ORDERED: APIXABAN 2.5 MG TABLET PO SCH (18:00)
[2024-07-01] MEDS ORDERED: CEFEPIME HCL 2,000 MG VIAL IV SCH (18:00)
[2024-07-01] MEDS ORDERED: OSELTAMIVIR PHOSPHATE 75 MG CAPSULE PO SCH (18:00)
[2024-07-01] MEDS ORDERED: NITROGLYCERIN IN 5 % DEXTROSE 50 MG/250 ML BOTTLE IV SCH (18:00)
[2024-07-01 18:09] LABS: ERYTHROCYTE SEDIMENTATION RATE 7 mm/hr
[2024-07-01 19:17] LABS: PH,URINE 5.5 (5.0-8.0); URINE APPEARANCE Clear; URINE BILIRRUBIN Negative (NEGATIVE); URINE BLOOD Small; URINE COLOR Yellow; URINE GLUCOSE Negative (NEGATIVE); URINE KETONE Negative (NEGATIVE); URINE LEUKOCYTE Negative; URINE NITRATE Negative; URINE PROTEIN Trace (NEGATIVE); URINE UROBILINOGEN 0.2 E.U./dl
[2024-07-01 19:21] LABS: URINE EPITHELIAL CELLS 2.3 uL (0.0-38.8); URINE RBC 9.7 uL (0.0-20.8)
[2024-07-01 19:25] LABS: URINE BACTERIA 1.2 uL (0.0-1933); URINE CAST 0.61 uL (0.0-1.40); URINE WBC 0.9 uL (0.0-23.2)
[2024-07-01 22:46] VITALS: BP 110/41; O2SAT 99
[2024-07-01 23:30] VITALS: BP 123/50; O2SAT 99
[2024-07-02] VITALS (13 sets, daily range): BP systolic 94–127; BP diastolic 41–62; O2SAT 95–100
[2024-07-02 07:19] LABS: INR 1.08; PARTIAL THROMBOPLASTIN TIME 31.5 SECONDS (22.0-34.0); PROTHROMBIN TIME 11.7 SECONDS (9.0-11.5)
[2024-07-02] MEDS ORDERED: NITROGLYCERIN IN 5 % DEXTROSE 250 ML IV SCH (07:30)
[2024-07-02 07:40] LABS: ALBUMIN 2.8 gm/dL (3.4-5.0); BILIRUBIN TOTAL 1.32 mg/dL (0.3-1.2); CALCIUM 8.1 mg/dL (8.5-10.1); CREATININE SERUM 1.14 mg/dL (0.70-1.30); GFR 61.35; GLOBULINA 2.1 G/DL (2.4-3.5); POTASSIUM 4.79 mEq/L (3.5-5.1); TOTAL PROTEIN 4.9 gm/dL (6.4-8.2); TSH 0.458 uIU/mL (0.358-3.74)
[2024-07-02 07:43] LABS: C-REACTIVE PROTEIN 11.5 MG/DL (0.00-0.29)
[2024-07-02] MEDS ORDERED: CODEINE/PROMETHAZINE HCL 1 ML ML PO SCH (09:00)
[2024-07-02] MEDS ORDERED: TAMSULOSIN HCL 0.4 MG CAP PO SCH (09:00)
[2024-07-02] MEDS ORDERED: CLOPIDOGREL BISULFATE 75 MG TABLET PO SCH (09:00)
[2024-07-02] MEDS ORDERED: CEFEPIME HCL 2,000 MG VIAL IV SCH (09:00)
[2024-07-02] MEDS ORDERED: ATORVASTATIN CALCIUM 40 MG TABLET PO SCH (09:00)
[2024-07-02] MEDS ORDERED: GABAPENTIN 100 MG CAPSULE PO SCH (09:00)
[2024-07-02] MEDS ORDERED: AZITHROMYCIN 500 MG VIAL IV NR (14:00)
[2024-07-02] MEDS ORDERED: CEFTRIAXONE SODIUM 2,000 MG VIAL IV SCH (17:00)
[2024-07-02] MEDS ORDERED: VITAMIN B COMPLEX 1 EACH PO SCH (19:06)
[2024-07-02] MEDS ORDERED: SOD FERRIC GLUC COMPLX/SUCROSE 62.5 MG/5 ML AMPUL IV SCH (19:06)
[2024-07-02] MEDS ORDERED: THIAMINE HCL 100 MG TABLET PO SCH (19:06)
[2024-07-02] MEDS ORDERED: Cyanocobalamin/Mecobalamin 1 TAB.SL SL SCH (19:07)
[2024-07-03] VITALS (7 sets, daily range): BP systolic 121–143; BP diastolic 59–75; O2SAT 88–99
[2024-07-03 07:53] LABS: HEMATOCRIT 25.8 % (39.0-48.0); MEAN CELL VOLUME 98.9 fL (80.0-100.00); MEAN CORPUSCULAR HGB CONC 33.4 g/dl (32.0-36.0); RED BLOOD COUNT 2.61 M/uL (4.00-6.00); RED CELL DISTRIBUTION WIDTH 20.3 % (11.5-14.5)
[2024-07-03 08:06] LABS: MEAN CORPUSCULAR HEMOGLOBIN 32.9 pg (27.00-32.0)
[2024-07-03 08:07] LABS: HEMOGLOBIN 8.6 g/dL (13-16.00); PLATELET COUNT 79 K/uL (150-450)
[2024-07-03 08:48] LABS: ALBUMIN 2.6 gm/dL (3.4-5.0); BILIRUBIN TOTAL 1.5 mg/dL (0.3-1.2); CALCIUM 7.9 mg/dL (8.5-10.1); CREATININE SERUM 1.18 mg/dL (0.70-1.30); GFR 58.95; PHOSPHOROUS 2.8 mg/dL (2.5-4.9); POTASSIUM 4.53 mEq/L (3.5-5.1); TOTAL PROTEIN 4.6 gm/dL (6.4-8.2)
[2024-07-03] MEDS ORDERED: OSELTAMIVIR PHOSPHATE 30MG CAP PO SCH (17:00)
[2024-07-03] MEDS ORDERED: AZITHROMYCIN 2 MG/ML REDILUIDO IV SCH (17:00)
[2024-07-03] MEDS ORDERED: METHYLPREDNISOLONE SOD SUCC 40 MG VIAL IV SCH (21:17)
[2024-07-04] VITALS (8 sets, daily range): BP systolic 128–138; BP diastolic 57–62; O2SAT 96–99
[2024-07-04 07:48] LABS: HEMATOCRIT 26.9 % (39.0-48.0); MEAN CELL VOLUME 99.7 fL (80.0-100.00); MEAN CORPUSCULAR HGB CONC 33.2 g/dl (32.0-36.0); RED BLOOD COUNT 2.69 M/uL (4.00-6.00); RED CELL DISTRIBUTION WIDTH 19.8 % (11.5-14.5)
[2024-07-04 08:06] LABS: HEMOGLOBIN 8.9 g/dL (13-16.00); PLATELET COUNT 70 K/uL (150-450)
[2024-07-04 08:36] LABS: ALBUMIN 2.7 gm/dL (3.4-5.0); BILIRUBIN TOTAL 0.92 mg/dL (0.3-1.2); CALCIUM 7.9 mg/dL (8.5-10.1); CREATININE SERUM 1.08 mg/dL (0.70-1.30); GFR 65.3; GLOBULINA 2.4 G/DL (2.4-3.5); MAGNESIUM 2.2 mg/dL (1.8-2.4); PHOSPHOROUS 3.7 mg/dL (2.5-4.9); POTASSIUM 4.49 mEq/L (3.5-5.1); TOTAL PROTEIN 5.1 gm/dL (6.4-8.2)
[2024-07-04 08:39] LABS: C-REACTIVE PROTEIN 6.97 MG/DL (0.00-0.29)
[2024-07-05] VITALS (9 sets, daily range): BP systolic 138–170; BP diastolic 61–85; O2SAT 95–100
[2024-07-05 07:55] LABS: HEMATOCRIT 24.6 % (39.0-48.0); MEAN CELL VOLUME 97.8 fL (80.0-100.00); MEAN CORPUSCULAR HGB CONC 34.4 g/dl (32.0-36.0); RED BLOOD COUNT 2.52 M/uL (4.00-6.00); RED CELL DISTRIBUTION WIDTH 18.9 % (11.5-14.5)
[2024-07-05 07:56] LABS: MEAN CORPUSCULAR HEMOGLOBIN 33.7 pg (27.00-32.0)
[2024-07-05 07:57] LABS: HEMOGLOBIN 8.5 g/dL (13-16.00); PLATELET COUNT 80 K/uL (150-450)
[2024-07-05 08:54] LABS: MANUAL PLATELET COUNT 154
[2024-07-05] MEDS ORDERED: METHYLPREDNISOLONE SOD SUCC 40 MG VIAL IV SCH (21:00)
[2024-07-06 00:50] VITALS: BP 125/79; O2SAT 96
[2024-07-06 08:30] VITALS: BP 174/74; O2SAT 100
[2024-07-06 09:47] VITALS: O2SAT 100
[2024-07-06 14:11] VITALS: O2SAT 100
[2024-07-06 16:00] VITALS: BP 140/65; O2SAT 96
[2024-07-06 17:24] VITALS: O2SAT 100
[2024-07-07 00:58] VITALS: BP 130/61; O2SAT 96
[2024-07-07 03:23] VITALS: O2SAT 100
[2024-07-07 08:00] VITALS: BP 159/69; O2SAT 100
[2024-07-07] MEDS ORDERED: FUROsemide 20 MG TABLET PO SCH (09:00)
[2024-07-07] MEDS ORDERED: FUROsemide 20 MG/2 ML VIAL IV SCH (11:30)
[2024-07-07 16:46] VITALS: BP 147/66; O2SAT 98
[2024-07-07 17:18] VITALS: O2SAT 100
[2024-07-07 22:04] VITALS: O2SAT 99
[2024-07-08] VITALS (8 sets, daily range): BP systolic 145–150; BP diastolic 62–103; O2SAT 98–100
[2024-07-08] MEDS ORDERED: METHYLPREDNISOLONE SOD SUCC 40 MG VIAL IV SCH (09:00)
[2024-07-08] MEDS ORDERED: CODEINE/PROMETHAZINE HCL 1 ML ML PO SCH (17:00)
[2024-07-09] VITALS (10 sets, daily range): BP systolic 155–180; BP diastolic 67–75; O2SAT 90–100
[2024-07-09] MEDS ORDERED: BENZONATATE 200 MG CAPSULE PO SCH (09:00)
[2024-07-10 02:23] VITALS: BP 160/69; O2SAT 98
[2024-07-10 02:25] VITALS: O2SAT 100
[2024-07-10 03:00] LABS: HEMATOCRIT 33.4 % (39.0-48.0); HEMOGLOBIN 11.5 g/dL (13-16.00); MEAN CELL VOLUME 92.8 fL (80.0-100.00); MEAN CORPUSCULAR HEMOGLOBIN 31.9 pg (27.00-32.0); MEAN CORPUSCULAR HGB CONC 34.4 g/dl (32.0-36.0); RED CELL DISTRIBUTION WIDTH 21.6 % (11.5-14.5)
[2024-07-10 03:54] LABS: PLATELET COUNT 120 K/uL (150-450)
[2024-07-10 06:50] VITALS: O2SAT 99
[2024-07-10 08:12] VITALS: BP 160/83; O2SAT 97
== END 2024-07-10 13:50 | disposition home or self-care (01) | DRG 189 ==
LOC: ER 14:16 → ICU-2 19:04 → SEC-K 07-02 19:13 → SURH 07-02 20:04
PROVIDERS: General Practice; Internal Medicine Hematology & Oncology; Internal Medicine Infectious Disease; ADMIT Specialist; ATTEND Specialist
PROC: BW24YZZ Computerized Tomography (CT Scan) of Chest and Abdomen using Other Contrast (ICD-10-PCS; principal; 2024-07-01)
PROC: B24BYZZ Ultrasonography of Heart with Aorta using Other Contrast (ICD-10-PCS; 2024-07-01)
PROC: 4A12X4Z Monitoring of Cardiac Electrical Activity, External Approach (ICD-10-PCS; 2024-07-03)
PROC: 30233N1 Transfusion of Nonautologous Red Blood Cells into Peripheral Vein, Percutaneous Approach (ICD-10-PCS; 2024-07-08)
DX: J96.90 Respiratory failure, unspecified, unspecified whether with hypoxia or hypercapnia (principal); R65.10 Systemic inflammatory response syndrome (SIRS) of non-infectious origin without acute organ dysfunction; I24.9 Acute ischemic heart disease, unspecified; I5A Non-ischemic myocardial injury (non-traumatic); J90 Pleural effusion, not elsewhere classified; J44.1 Chronic obstructive pulmonary disease with (acute) exacerbation; J45.901 Unspecified asthma with (acute) exacerbation; D84.9 Immunodeficiency, unspecified; C90.00 Multiple myeloma not having achieved remission; J10.1 Influenza due to other identified influenza virus with other respiratory manifestations; J44.9 Chronic obstructive pulmonary disease, unspecified; D64.9 Anemia, unspecified; I10 Essential (primary) hypertension

== ENCOUNTER 2024-08-23 10:45 | Outpatient (CLI) | payer OTHER ==
[~2024-08-23 10:45] MED LIST changes: +COZAAR100 MG PO; +ELIQUIS5 MG PO; +LIPITOR40 M1 PO; +NORVASC5 MG PO; +SIMVASTATIN5 MG PO
[2024-08-23 11:21] LABS: HEMATOCRIT 27.9 % (39.0-48.0); HEMOGLOBIN 9.6 g/dL (13-16.00); MEAN CELL VOLUME 96.3 fL (80.0-100.00); MEAN CORPUSCULAR HEMOGLOBIN 33.1 pg (27.00-32.0); MEAN CORPUSCULAR HGB CONC 34.3 g/dl (32.0-36.0); RED BLOOD COUNT 2.89 M/uL (4.00-6.00); RED CELL DISTRIBUTION WIDTH 19.4 % (11.5-14.5)
[2024-08-23 11:58] LABS: BILIRUBIN TOTAL 1.2 mg/dL (0.3-1.2); CALCIUM 8.6 mg/dL (8.5-10.1); CREATININE SERUM 1.07 mg/dL (0.70-1.30); GLOBULINA 2.8 G/DL (2.4-3.5); POTASSIUM 4.67 mEq/L (3.5-5.1); TOTAL PROTEIN 5.8 gm/dL (6.4-8.2)
[2024-08-23 12:03] LABS: PLATELET COUNT 100 K/uL (150-450)
[2024-08-23 12:20] LABS: FOLIC ACID 16.44 ng/ml (4.78-20)
== END 2024-08-23 10:49 | disposition home or self-care (01) ==
LOC: LAB 10:45
PROVIDERS: ATTEND Internal Medicine Hematology & Oncology
DX: C90.00 Multiple myeloma not having achieved remission (principal); D68.61 Antiphospholipid syndrome; D50.0 Iron deficiency anemia secondary to blood loss (chronic); D51.3 Other dietary vitamin B12 deficiency anemia; I82.811 Embolism and thrombosis of superficial veins of right lower extremity; E78.2 Mixed hyperlipidemia; N40.1 Benign prostatic hyperplasia with lower urinary tract symptoms; I70.213 Atherosclerosis of native arteries of extremities with intermittent claudication, bilateral legs

== ENCOUNTER 2024-10-11 09:42 | Outpatient (CLI) | payer OTHER ==
[2024-10-11 11:08] LABS: HEMATOCRIT 30.6 % (39.0-48.0); HEMOGLOBIN 10.5 g/dL (13-16.00); MEAN CELL VOLUME 97.4 fL (80.0-100.00); MEAN CORPUSCULAR HEMOGLOBIN 33.5 pg (27.00-32.0); MEAN CORPUSCULAR HGB CONC 34.4 g/dl (32.0-36.0); RED BLOOD COUNT 3.14 M/uL (4.00-6.00)
[2024-10-11 11:12] LABS: PLATELET COUNT 81 K/uL (150-450)
[2024-10-11 12:07] LABS: ALBUMIN 3.1 gm/dL (3.4-5.0); BILIRUBIN TOTAL 1.45 mg/dL (0.3-1.2); CALCIUM 8.6 mg/dL (8.5-10.1); CREATININE SERUM 0.96 mg/dL (0.70-1.30); GFR 74.62; GLOBULINA 2.1 G/DL (2.4-3.5); POTASSIUM 4.87 mEq/L (3.5-5.1); TOTAL PROTEIN 5.2 gm/dL (6.4-8.2)
== END 2024-10-11 09:49 | disposition home or self-care (01) ==
LOC: LAB 09:42
PROVIDERS: ATTEND Internal Medicine Hematology & Oncology
DX: C90.00 Multiple myeloma not having achieved remission (principal); E72.11 Homocystinuria; D50.0 Iron deficiency anemia secondary to blood loss (chronic); D51.3 Other dietary vitamin B12 deficiency anemia; I82.811 Embolism and thrombosis of superficial veins of right lower extremity; E78.2 Mixed hyperlipidemia; N40.1 Benign prostatic hyperplasia with lower urinary tract symptoms; I70.213 Atherosclerosis of native arteries of extremities with intermittent claudication, bilateral legs; D50.8 Other iron deficiency anemias; I10 Essential (primary) hypertension; R74.02 Elevation of levels of lactic acid dehydrogenase [LDH]; K76.89 Other specified diseases of liver

== ENCOUNTER 2024-10-27 06:41 | Inpatient (IN) | payer OTHER ==
[~2024-10-27] VITALS: Ht 162.6 cm; Wt 68.0 kg
[2024-10-27] MEDS ORDERED: IPRATROPIUM/ALBUTEROL SULFATE 3 ML AMPUL.NEB IH STA (07:01)
[2024-10-27] MEDS ORDERED: METHYLPREDNISOLONE SOD SUCC 125 MG VIAL IV STA (07:02)
[2024-10-27] MEDS ORDERED: WATER FOR INJ.,BACTERIOSTATIC 30 ML VIAL IJ ONE (07:07)
[2024-10-27] MEDS ORDERED: METHYLPREDNISOLONE SOD SUCC 125 MG VIAL ONE (07:07)
[2024-10-27] MEDS ORDERED: IPRATROPIUM/ALBUTEROL SULFATE 3 ML AMPUL.NEB IH ONE (07:38)
[2024-10-27 07:57] LABS: ABG PH 7.357 (7.35-7.45); ABG pCO2 48.2 mmHg (35-45); BASE EXCESS 0.3 mmol/l; BICARBONATE 26.4 mmol/l (23-25); SaO2 84.4 %; Tco2 27.9 mmol/l
[2024-10-27 08:11] LABS: ALBUMIN 3.2 gm/dL (3.4-5.0); BILIRUBIN TOTAL 0.82 mg/dL (0.3-1.2); CALCIUM 8.1 mg/dL (8.5-10.1); CREATININE SERUM 1.3 mg/dL (0.70-1.30); GFR 52.59; GLOBULINA 2.5 G/DL (2.4-3.5); POTASSIUM 5.26 mEq/L (3.5-5.1); TOTAL PROTEIN 5.7 gm/dL (6.4-8.2)
[2024-10-27 08:40] LABS: HEMATOCRIT 30.2 % (39.0-48.0); MEAN CELL VOLUME 102.1 fL (80.0-100.00); MEAN CORPUSCULAR HEMOGLOBIN 33.8 pg (27.00-32.0); MEAN CORPUSCULAR HGB CONC 33.1 g/dl (32.0-36.0); RED BLOOD COUNT 2.96 M/uL (4.00-6.00); RED CELL DISTRIBUTION WIDTH 17.4 % (11.5-14.5)
[2024-10-27] MEDS ORDERED: NITROGLYCERIN IN 5 % DEXTROSE 250 ML IV SCH (09:00)
[2024-10-27] MEDS ORDERED: NITROGLYCERIN IN 5 % DEXTROSE 50 MG/250 ML BOTTLE IV ONE (09:17)
[2024-10-27 09:53] LABS: PLATELET COUNT 113 K/uL (150-450)
[2024-10-27 11:40] LABS: ABG PO2 51.5 mmHg (80-100); allen test SATISFACTORY; o2 21 %; puncture site RADIAL RIGHT
[2024-10-27 19:22] VITALS: BP 109/51
[2024-10-27] MEDS ORDERED: IPRATROPIUM BROMIDE 0.5 MG/2.5 ML AMPUL.NEB IH ONE (19:59)
[2024-10-27] MEDS ORDERED: LEVALBUTEROL HCL 0.63 MG/3 ML SOLUTION IH ONE (19:59)
[2024-10-27] MEDS ORDERED: FUROsemide 20 MG/2 ML VIAL ONE (20:48)
[2024-10-27] MEDS ORDERED: FUROsemide 20 MG/2 ML VIAL IV SCH (21:00)
[2024-10-27 23:24] VITALS: BP 106/45; O2SAT 99
[2024-10-28] VITALS (9 sets, daily range): BP systolic 112–129; BP diastolic 55–65; O2SAT 90–100
[2024-10-28] MEDS ORDERED: IPRATROPIUM BROMIDE 0.5 MG/2.5 ML AMPUL.NEB IH SCH
[2024-10-28] MEDS ORDERED: LEVALBUTEROL HCL 0.63 MG/3 ML SOLUTION IH SCH
[2024-10-28] MEDS ORDERED: ISOSORBIDE DINITRATE 5 MG TABLET PO SCH (08:00)
[2024-10-28] MEDS ORDERED: METOPROLOL SUCCINATE 25 MG TAB.SR.24H PO SCH (09:00)
[2024-10-28] MEDS ORDERED: AMLODIPINE BESYLATE 5 MG TABLET PO SCH (09:00)
[2024-10-28] MEDS ORDERED: BENZONATATE 200 MG CAPSULE PO SCH (09:00)
[2024-10-28] MEDS ORDERED: LOSARTAN POTASSIUM 100 MG TABLET PO SCH (09:00)
[2024-10-28] MEDS ORDERED: CLOPIDOGREL BISULFATE 75 MG TABLET PO SCH (09:00)
[2024-10-28] MEDS ORDERED: FINASTERIDE 5 MG TABLET PO SCH (09:00)
[2024-10-28] MEDS ORDERED: TAMSULOSIN HCL 0.4 MG CAP PO SCH (09:00)
[2024-10-28] MEDS ORDERED: APIXABAN 2.5 MG TABLET PO SCH (09:00)
[2024-10-28] MEDS ORDERED: PANTOPRAZOLE SODIUM 40 MG/VIAL VIAL IV SCH (12:00)
[2024-10-28] MEDS ORDERED: ATORVASTATIN CALCIUM 40 MG TABLET PO SCH (17:00)
[2024-10-28] MEDS ORDERED: METHYLPREDNISOLONE SOD SUCC 40 MG VIAL IV SCH (19:11)
[2024-10-28] MEDS ORDERED: BUDESONIDE 0.25 MG/2 ML AMPUL.NEB IH SCH (21:00)
[2024-10-28 21:51] LABS: ALBUMIN 3.3 gm/dL (3.4-5.0); BILIRUBIN TOTAL 1.04 mg/dL (0.3-1.2); CALCIUM 8.4 mg/dL (8.5-10.1); CREATININE SERUM 1.34 mg/dL (0.70-1.30); GFR 50.78; GLOBULINA 2.3 G/DL (2.4-3.5); POTASSIUM 4.74 mEq/L (3.5-5.1); TOTAL PROTEIN 5.6 gm/dL (6.4-8.2)
[2024-10-29] VITALS (10 sets, daily range): BP systolic 111–137; BP diastolic 50–70; O2SAT 97–99
[2024-10-29 06:48] LABS: HEMATOCRIT 29.9 % (39.0-48.0); HEMOGLOBIN 10.2 g/dL (13-16.00); MEAN CELL VOLUME 99.1 fL (80.0-100.00); MEAN CORPUSCULAR HEMOGLOBIN 33.7 pg (27.00-32.0); RED BLOOD COUNT 3.02 M/uL (4.00-6.00); RED CELL DISTRIBUTION WIDTH 17.1 % (11.5-14.5)
[2024-10-29 07:16] LABS: PLATELET COUNT 121 K/uL (150-450)
[2024-10-29] MEDS ORDERED: VITAMIN B COMPLEX 1 EACH PO NR (11:00)
[2024-10-29] MEDS ORDERED: SOD FERRIC GLUC COMPLX/SUCROSE 62.5 MG/5 ML AMPUL IV NR (11:00)
[2024-10-29] MEDS ORDERED: Cyanocobalamin/Mecobalamin 1 TAB.SL SL NR (11:00)
[2024-10-29] MEDS ORDERED: VITAMIN B COMPLEX 1 EACH PO SCH (17:00)
[2024-10-29] MEDS ORDERED: ISOSORBIDE MONONITRATE 30 MG TABLET PO NR (18:40)
[2024-10-30] VITALS (9 sets, daily range): BP systolic 110–150; BP diastolic 50–58; O2SAT 93–100
[2024-10-30] MEDS ORDERED: Cyanocobalamin/Mecobalamin 1 TAB.SL SL SCH (09:00)
[2024-10-30] MEDS ORDERED: SOD FERRIC GLUC COMPLX/SUCROSE 62.5 MG/5 ML AMPUL IV SCH (09:00)
[2024-10-30] MEDS ORDERED: METHYLPREDNISOLONE SOD SUCC 40 MG VIAL IV SCH (13:00)
[2024-10-31] VITALS (9 sets, daily range): BP systolic 122–169; BP diastolic 47–57; O2SAT 90–100
[2024-10-31 07:45] LABS: ALBUMIN 2.9 gm/dL (3.4-5.0); BILIRUBIN TOTAL 1.03 mg/dL (0.3-1.2); CALCIUM 8.3 mg/dL (8.5-10.1); CREATININE SERUM 1.07 mg/dL (0.70-1.30); GFR 65.84; GLOBULINA 2.6 G/DL (2.4-3.5); POTASSIUM 4.84 mEq/L (3.5-5.1); TOTAL PROTEIN 5.5 gm/dL (6.4-8.2)
[2024-11-01] VITALS (9 sets, daily range): BP systolic 120–155; BP diastolic 52–80; O2SAT 94–99
[2024-11-01 06:56] LABS: HEMATOCRIT 31.9 % (39.0-48.0); HEMOGLOBIN 10.7 g/dL (13-16.00); MEAN CELL VOLUME 99.5 fL (80.0-100.00); MEAN CORPUSCULAR HEMOGLOBIN 33.3 pg (27.00-32.0); MEAN CORPUSCULAR HGB CONC 33.4 g/dl (32.0-36.0); RED BLOOD COUNT 3.21 M/uL (4.00-6.00); RED CELL DISTRIBUTION WIDTH 17.1 % (11.5-14.5)
[2024-11-01 06:57] LABS: PLATELET COUNT 114 K/uL (150-450)
[2024-11-01] MEDS ORDERED: PANTOPRAZOLE SODIUM 40 MG TABLET.DR PO SCH (09:00)
[2024-11-01] MEDS ORDERED: FUROsemide 20 MG/2 ML VIAL IV SCH (09:00)
[2024-11-01 10:22] LABS: ABG PH 7.426 (7.35-7.45); ABG PO2 69.1 mmHg (80-100); ABG pCO2 51.8 mmHg (35-45)
[2024-11-01 10:23] LABS: BASE EXCESS 7.3 mmol/l; BICARBONATE 33.3 mmol/l (23-25); SaO2 94.4 %; Tco2 34.9 mmol/l; allen test SATISFACTORY; o2 21 %; puncture site RADIAL RIGHT
[2024-11-02] VITALS (8 sets, daily range): BP systolic 127–160; BP diastolic 56–76; O2SAT 95–100
[2024-11-03] VITALS (9 sets, daily range): BP systolic 115–146; BP diastolic 50–64; O2SAT 93–99
[2024-11-04 00:54] VITALS: O2SAT 99
[2024-11-04 01:49] VITALS: BP 158/64; O2SAT 96
[2024-11-04 05:42] VITALS: BP 145/65; O2SAT 98
[2024-11-04 06:03] VITALS: O2SAT 100
[2024-11-04 06:56] LABS: HEMATOCRIT 31.6 % (39.0-48.0); HEMOGLOBIN 10.9 g/dL (13-16.00); MEAN CELL VOLUME 98.1 fL (80.0-100.00); MEAN CORPUSCULAR HEMOGLOBIN 33.9 pg (27.00-32.0); MEAN CORPUSCULAR HGB CONC 34.6 g/dl (32.0-36.0); RED BLOOD COUNT 3.22 M/uL (4.00-6.00); RED CELL DISTRIBUTION WIDTH 16.7 % (11.5-14.5)
[2024-11-04 07:00] LABS: PLATELET COUNT 102 K/uL (150-450)
[2024-11-04 07:08] LABS: ALBUMIN 2.6 gm/dL (3.4-5.0); BILIRUBIN TOTAL 1.17 mg/dL (0.3-1.2); CALCIUM 8.4 mg/dL (8.5-10.1); CREATININE SERUM 0.86 mg/dL (0.70-1.30); GFR 84.72; GLOBULINA 2.3 G/DL (2.4-3.5); POTASSIUM 4.39 mEq/L (3.5-5.1); TOTAL PROTEIN 4.9 gm/dL (6.4-8.2)
[2024-11-04 09:01] VITALS: BP 1556/60; O2SAT 18
[2024-11-04 09:34] VITALS: O2SAT 100
== END 2024-11-04 13:54 | disposition home or self-care (01) | DRG 280 ==
LOC: ER 06:41 → MEDI 18:05
PROVIDERS: ADMIT Specialist; ATTEND Specialist
PROC: B246ZZZ Ultrasonography of Right and Left Heart (ICD-10-PCS; principal; 2024-10-27)
PROC: 4A12X4Z Monitoring of Cardiac Electrical Activity, External Approach (ICD-10-PCS; 2024-10-27)
PROC: 3E0F7GC Introduction of Other Therapeutic Substance into Respiratory Tract, Via Natural or Artificial Opening (ICD-10-PCS; 2024-10-27)
PROC: BB24ZZZ Computerized Tomography (CT Scan) of Bilateral Lungs (ICD-10-PCS; 2024-10-30)
DX: I21.4 Non-ST elevation (NSTEMI) myocardial infarction (principal); I50.33 Acute on chronic diastolic (congestive) heart failure; J44.1 Chronic obstructive pulmonary disease with (acute) exacerbation; C90.00 Multiple myeloma not having achieved remission; D63.0 Anemia in neoplastic disease; D53.0 Protein deficiency anemia; J43.8 Other emphysema; J84.10 Pulmonary fibrosis, unspecified; I11.0 Hypertensive heart disease with heart failure; I25.10 Atherosclerotic heart disease of native coronary artery without angina pectoris; I73.89 Other specified peripheral vascular diseases; Z98.62 Peripheral vascular angioplasty status; Z87.891 Personal history of nicotine dependence

== ENCOUNTER 2025-03-14 20:08 | Inpatient (IN) | payer OTHER ==
[~2025-03-14] VITALS: Ht 160 cm; Wt 68.0 kg
[~2025-03-14 20:08] MED LIST changes: +AVODART0.5 MG PO; +CLOPIDOGREL BIS75 MG; +DOCETAXEL20 MG/1 ML; +FUROSEMIDE20 MG; +GABAPENTIN100 M2; +GEMCITABINE HCL1 GM; +LIPITOR40 MG PO; +PENTOXIFYLLINE400 MG
--- NOTE | 2025-03-14 20:59 | NUR ---
PACIENTE ALERTA Y ORIENTADO X 3. REFIERE 3 PINZON CON KAITY TOS Y SECFRSIONES, EN TRATAMIENTO ESTEFANY NO MEJORA.
[2025-03-14] MEDS ORDERED: PEPCID AC20 MG (21:08)
[2025-03-14] MEDS ORDERED: PROSCAR5 MG PO (21:09)
[2025-03-14] MEDS ORDERED: LASIX20 MG (21:09)
[2025-03-14] MEDS ORDERED: LEVALBUTEROL HCL 1.25 MG/3 ML SOLUTION IH ONE ×2 (21:29→21:30)
[2025-03-14 21:54] LABS: BASO % 0.5 % (0.1-1.2); EOS # 0.01 (0.04-0.54); EOS % 0.3 % (0.7-7.0); LYMPH # 0.31 (1.18-3.74); LYMPH % 7.8 % (19.3-53.1); MEAN PLATELET VOLUME 11.60 fl (9.4-12.4); MONO # 0.14 (0.24-0.82); MONO % 3.5 % (4.7-12.5); NEUT # 3.51 (1.56-6.13); NEUT % 87.6 % (34.0-71.1); RED CELL DISTRIBUTION WIDTH 14.6 % (11.6-14.4)
--- NOTE | 2025-03-14 22:05 | NUR ---
SE EDUCA A PTE SOBRE TX MEDICO, SE JACK MUESTRAS DE LABORATORIO UTILIZANDO MEDIDAS ASEPTICAS. SE COLOCA H/L LOIS DE EDEMA. SE NOTIFICAN ABGS Y TERAPIAS PENDIENTES Y SE NOTIFICA RX PENDIENTE.
[2025-03-14 22:14] LABS: INR 1.14
[2025-03-14 22:16] LABS: ABG PH 7.429 (7.35-7.45); ABG PO2 56.2 mmHg (80-100); BICARBONATE 32.1 mmol/l (23-25)
[2025-03-14 22:17] LABS: o2 21 %
[2025-03-14 22:35] LABS: ALT/SGPT 39.0 U/L (12-78); AST/SGOT 18.0 U/L (15-37); BILIRUBIN TOTAL 0.99 mg/dL (0.3-1.2); BUN CREA RATIO 22.0 (7.0-25.0); CREATININE SERUM 1.11 mg/dL (0.70-1.30); GFR 63.11; GLOBULINA 3.4 G/DL (2.4-3.5); GLUCOSE FASTING 151.0 mg/dL (65-100); OSMOLALITY SERUM 290.0 MOSM/KG (275-295)
[2025-03-14] MEDS ORDERED: ALBUTEROL SULFATE 3 ML/2.5 MG AMPUL.NEB IH SCH (23:03)
[2025-03-14] MEDS ORDERED: ATORVASTATIN CALCIUM 40 MG TABLET PO SCH (23:10)
[2025-03-14] MEDS ORDERED: ENOXAPARIN SODIUM 40 MG/0.4 ML SYRINGE SUBCUTANEO SCH (23:10)
[2025-03-14] MEDS ORDERED: INSULIN LISPRO 1,000 UNIT/10 ML UNITS SUBCUTANEO PRN (23:15)
[2025-03-14] MEDS ORDERED: DEXTROSE 50 % IN WATER 0.5 G/ML VIAL IV PRN (23:15)
[2025-03-14] MEDS ORDERED: METHYLPREDNISOLONE SOD SUCC 40 MG VIAL ONE (23:32)
[2025-03-14] MEDS ORDERED: ENOXAPARIN SODIUM 40 MG/0.4 ML SYRINGE SUBCUTANEO ONE (23:33)
[2025-03-14 23:46] LABS: URINE APPEARANCE Turbid; URINE BILIRRUBIN Negative (NEGATIVE); URINE BLOOD Small; URINE COLOR Dark Yellow; URINE GLUCOSE Negative (NEGATIVE); URINE KETONE Trace (NEGATIVE); URINE LEUKOCYTE Moderate; URINE NITRATE Negative; URINE UROBILINOGEN 1.0 E.U./dl
[2025-03-14 23:51] LABS: URINE CAST 2.49 uL (0.0-1.40); URINE EPITHELIAL CELLS 8.9 uL (0.0-38.8); URINE RBC 3.5 uL (0.0-20.8); URINE WBC 5094.0 uL (0.0-23.2)
[2025-03-15] LABS: COVID-19 AG NEGATIVE (NEGATIVE)
[2025-03-15] MEDS ORDERED: IPRATROPIUM/ALBUTEROL SULFATE 3 ML AMPUL.NEB IH SCH
[2025-03-15] MEDS ORDERED: GUAIFENESIN 200 MG/10 ML BLIST.PACK PO ONE (00:02)
[2025-03-15 00:05] LABS: URINE BACTERIA > 9821.5 uL (0.0-1933); URINE PROTEIN 100 (NEGATIVE)
[2025-03-15] MEDS ORDERED: ALBUTEROL SULFATE 3 ML/2.5 MG AMPUL.NEB IH ONE ×2 (00:33→11:19)
[2025-03-15 00:36] LABS: BUN CREA RATIO 23.0 (7.0-25.0); CHOL HDL RATIO 2.0 (0-5.0); CREATININE SERUM 1.01 mg/dL (0.70-1.30); GFR 70.38; GLUCOSE FASTING 134.0 mg/dL (65-100); HDL 36.0 mg/dl (40-60); LDL 29.0 mg/dl (0-130); OSMOLALITY SERUM 287.0 MOSM/KG (275-295); PHOSPHOKINASE CREATININE 35.0 U/L (39-308); TSH 0.863 uIU/mL (0.358-3.74); VLDL 7.0 (0-39)
[2025-03-15] MEDS ORDERED: METHYLPREDNISOLONE SOD SUCC 40 MG VIAL IV SCH (01:00)
[2025-03-15 02:04] VITALS: BP 137/63; O2SAT 95
[2025-03-15 07:59] VITALS: BP 146/61; O2SAT 97
[2025-03-15] MEDS ORDERED: CEFTRIAXONE SODIUM 2,000 MG VIAL IV SCH (10:55)
[2025-03-15] MEDS ORDERED: ISOSORBIDE MONONITRATE 30 MG TABLET PO SCH (10:58)
[2025-03-15] MEDS ORDERED: BUDESONIDE 0.25 MG/2 ML AMPUL.NEB IH SCH (10:59)
[2025-03-15] MEDS ORDERED: FINASTERIDE 5 MG TABLET PO SCH (10:59)
[2025-03-15] MEDS ORDERED: METOPROLOL SUCCINATE 25 MG TAB.SR.24H PO SCH (10:59)
[2025-03-15] MEDS ORDERED: BENZONATATE 100 MG CAPSULE PO SCH (13:00)
[2025-03-15 16:25] VITALS: O2SAT 99
[2025-03-15] MEDS ORDERED: LEVALBUTEROL HCL 0.63 MG/3 ML SOLUTION IH SCH (17:00)
[2025-03-15 19:10] VITALS: BP 134/62; O2SAT 95
[2025-03-15] MEDS ORDERED: TAMSULOSIN HCL 0.4 MG CAP PO SCH (21:00)
[2025-03-15 21:01] VITALS: O2SAT 91
[2025-03-16] VITALS (8 sets, daily range): BP systolic 130–145; BP diastolic 56–66; O2SAT 96–100
[2025-03-16] MEDS ORDERED: AZITHROMYCIN 500 MG VIAL IV SCH (13:47)
[2025-03-16] MEDS ORDERED: AZITHROMYCIN 500 MG VIAL IV ONE ×2 (14:33→16:51)
[2025-03-17] VITALS (9 sets, daily range): BP systolic 133–152; BP diastolic 62–71; O2SAT 97–100
[2025-03-17 06:45] LABS: BASO % 0.0 % (0.1-1.2); EOS # 0.00 (0.04-0.54); EOS % 0.0 % (0.7-7.0); LYMPH # 0.49 (1.18-3.74); LYMPH % 6.0 % (19.3-53.1); MEAN PLATELET VOLUME 11.80 fl (9.4-12.4); MONO # 0.20 (0.24-0.82); MONO % 2.4 % (4.7-12.5); NEUT # 7.44 (1.56-6.13); NEUT % 91.0 % (34.0-71.1); RED CELL DISTRIBUTION WIDTH 14.6 % (11.6-14.4)
[2025-03-17 07:00] LABS: ALT/SGPT 32.0 U/L (12-78); AST/SGOT 15.0 U/L (15-37); BILIRUBIN TOTAL 0.41 mg/dL (0.3-1.2); BUN CREA RATIO 45.0 (7.0-25.0); CREATININE SERUM 1.0 mg/dL (0.70-1.30); GFR 71.19; GLOBULINA 2.4 G/DL (2.4-3.5); GLUCOSE FASTING 103.0 mg/dL (65-100); OSMOLALITY SERUM 297.0 MOSM/KG (275-295)
[2025-03-17] MEDS ORDERED: METHYLPREDNISOLONE SOD SUCC 40 MG VIAL IV SCH (17:00)
[2025-03-18] VITALS (8 sets, daily range): BP systolic 141–162; BP diastolic 61–76; O2SAT 92–100
[2025-03-19 02:40] VITALS: BP 167/61; O2SAT 100
[2025-03-19 05:34] VITALS: O2SAT 100
[2025-03-19 08:33] VITALS: BP 147/56; O2SAT 99
[2025-03-19 10:14] VITALS: O2SAT 100
[2025-03-19 13:05] VITALS: O2SAT 100
[2025-03-19 16:33] VITALS: O2SAT 99
== END 2025-03-19 17:12 | disposition home or self-care (01) | DRG 191 ==
LOC: ER 20:08 → MEDI 23:51 → SEC-K 23:51 → MEDI 03-15 11:45
PROVIDERS: General Practice; Internal Medicine Geriatric Medicine; ADMIT Specialist; ATTEND Specialist
PROC: BW24ZZZ Computerized Tomography (CT Scan) of Chest and Abdomen (ICD-10-PCS; principal; 2025-03-14)
PROC: B24BYZZ Ultrasonography of Heart with Aorta using Other Contrast (ICD-10-PCS; 2025-03-14)
PROC: 4A12X4Z Monitoring of Cardiac Electrical Activity, External Approach (ICD-10-PCS; 2025-03-15)
DX: J44.1 Chronic obstructive pulmonary disease with (acute) exacerbation (principal); I50.30 Unspecified diastolic (congestive) heart failure; N39.0 Urinary tract infection, site not specified; J96.12 Chronic respiratory failure with hypercapnia; I50.9 Heart failure, unspecified; I11.0 Hypertensive heart disease with heart failure

== ENCOUNTER 2025-07-15 08:50 | Outpatient (CLI) | payer OTHER ==
[~2025-07-15 08:50] MED LIST changes: +LASIX20 MG; +PEPCID AC20 MG; +PROSCAR5 MG PO
[2025-07-15 10:00] LABS: URINE APPEARANCE Clear; URINE BILIRRUBIN Negative (NEGATIVE); URINE BLOOD Negative; URINE COLOR Yellow; URINE GLUCOSE Negative (NEGATIVE); URINE KETONE Negative (NEGATIVE); URINE LEUKOCYTE Trace; URINE NITRATE Negative; URINE PROTEIN Negative (NEGATIVE); URINE UROBILINOGEN 0.2 E.U./dl
[2025-07-15 10:00] LABS: BASO % 0.6 % (0.1-1.2); EOS # 0.57 (0.04-0.54); EOS % 10.7 % (0.7-7.0); LYMPH # 1.71 (1.18-3.74); LYMPH % 32.1 % (19.3-53.1); MEAN PLATELET VOLUME 11.30 fl (9.4-12.4); MONO # 0.64 (0.24-0.82); MONO % 12.0 % (4.7-12.5); NEUT # 2.36 (1.56-6.13); NEUT % 44.4 % (34.0-71.1); RED CELL DISTRIBUTION WIDTH 14.1 % (11.6-14.4)
[2025-07-15 10:04] LABS: URINE RBC 11.7 uL (0.0-20.8); URINE WBC 2.5 uL (0.0-23.2)
[2025-07-15 10:28] LABS: URINE BACTERIA 2.2 uL (0.0-1933); URINE CAST 0.00 uL (0.0-1.40); URINE EPITHELIAL CELLS 1.3 uL (0.0-38.8)
[2025-07-15 11:12] LABS: % SATURACION 24.1 % (20-50); ALT/SGPT 19.0 U/L (12-78); AST/SGOT 11.0 U/L (15-37); BILIRUBIN TOTAL 1.37 mg/dL (0.3-1.2); BUN CREA RATIO 23.0 (7.0-25.0); CHOL HDL RATIO 2.6 (0-5.0); CREATININE SERUM 1.06 mg/dL (0.70-1.30); FE 59.0 ug/dl (65-175); GFR 66.56; GLOBULINA 2.4 G/DL (2.4-3.5); GLUCOSE FASTING 97.0 mg/dL (65-100); HDL 47.0 mg/dl (40-60); LDH 118.0 U/L (87-241); LDL 65.0 mg/dl (0-130); OSMOLALITY SERUM 289.0 MOSM/KG (275-295); VLDL 8.0 (0-39)
[2025-07-15 13:05] LABS: FOLIC ACID 13.54 ng/ml (4.78-20)
[2025-07-16 14:07] LABS: kappa lambda r 1.36 (0.26-1.65); kappa light 17.8 mg/L (3.3-19.4)
[2025-07-17 18:11] LABS: BETA-2-MICROGLOBULINA 2.4 mg/L (0.6-2.4)
[2025-07-17 20:07] LABS: albu 100.0 % (.); alph 2 0 % (.); gam 0 % (.); m spi 0 % (Not Observed)
[2025-07-18 18:07] LABS: IMM A 236 mg/dL (61-437); IMM G 703 mg/dL (603-1613); IMM M 18 mg/dL (15-143); a:g ratio 1.5 (0.7-1.7); alpha 1 g 0.3 g/dL (0.0-0.4); beta g 0.7 g/dL (0.7-1.3); gamma g 0.7 g/dL (0.4-1.8); globulin t 2.2 g/dL (2.2-3.9); prot total 5.6 g/dL (6.0-8.5)
== END 2025-07-15 09:00 | disposition home or self-care (01) ==
LOC: LAB 08:50
PROVIDERS: ATTEND Internal Medicine Hematology & Oncology
DX: D50.8 Other iron deficiency anemias (principal); I10 Essential (primary) hypertension; R74.02 Elevation of levels of lactic acid dehydrogenase [LDH]; K76.89 Other specified diseases of liver; D51.3 Other dietary vitamin B12 deficiency anemia; D52.9 Folate deficiency anemia, unspecified; D47.2 Monoclonal gammopathy; C90.00 Multiple myeloma not having achieved remission; E72.11 Homocystinuria; D50.0 Iron deficiency anemia secondary to blood loss (chronic); I82.B11 Acute embolism and thrombosis of right subclavian vein; E78.2 Mixed hyperlipidemia; N40.1 Benign prostatic hyperplasia with lower urinary tract symptoms; I70.213 Atherosclerosis of native arteries of extremities with intermittent claudication, bilateral legs; N39.9 Disorder of urinary system, unspecified; D64.9 Anemia, unspecified; E11.65 Type 2 diabetes mellitus with hyperglycemia